=== PATIENT | female | born 1935 | race Hispanic/Latino ===

== ENCOUNTER → 2017-09-30 | Outpatient (CLI) | payer MEDICARE ==
[~2017-09-30] MED LIST: ANAS1TAB7 PO; ASPI-1005 PO; ATOR40TA71 PO; BRIN8DRO OU; GLIM1TAB2 PO; LISI-617 PO; MECL12.585 PO; METO-408 PO; METO25TA6 PO; OLOP2.5D OU; RANI-248 PO; SITA100T12 PO; TRAVZOS OU
== END | disposition home or self-care (01) ==
LOC: RAH 16:22
PROVIDERS: ATTEND Internal Medicine
DX: M41.84 Other forms of scoliosis, thoracic region (principal); I10 Essential (primary) hypertension; E11.9 Type 2 diabetes mellitus without complications; E78.5 Hyperlipidemia, unspecified; Z95.0 Presence of cardiac pacemaker; Z85.3 Personal history of malignant neoplasm of breast
CPT/HCPCS: 71046

== ENCOUNTER → 2017-10-15 | Outpatient (CLI) | payer MEDICARE ==
[2017-10-15 12:15] LABS: CREATININE 0.8 mg/dL (0.5-1.5)
== END | disposition home or self-care (01) ==
LOC: LAB 10:18
PROVIDERS: ATTEND Internal Medicine
DX: E11.9 Type 2 diabetes mellitus without complications (principal)
CPT/HCPCS: 36415; 82565; 84520

== ENCOUNTER → 2017-10-19 | Outpatient (CLI) | payer MEDICARE ==
[~2017-10-19] MED LIST changes: +ISOVUE-370 50ML VIAL IV ONE
== END | disposition home or self-care (01) ==
LOC: RAH 09:57
PROVIDERS: ATTEND Internal Medicine
DX: R07.9 Chest pain, unspecified (principal); Z85.3 Personal history of malignant neoplasm of breast; Z90.49 Acquired absence of other specified parts of digestive tract
CPT/HCPCS: 71260; Q9967

== ENCOUNTER → 2017-10-20 | Outpatient (CLI) | payer MEDICARE ==
[~2017-10-20] MED LIST changes: -ISOVUE-370 50ML VIAL IV ONE
== END | disposition home or self-care (01) ==
LOC: RAH 11:08
PROVIDERS: ATTEND Psychiatry & Neurology Neurology
DX: R51 Headache (principal)
CPT/HCPCS: 70450

== ENCOUNTER → 2017-11-12 | Outpatient (CLI) | payer MEDICARE | END | disposition home or self-care (01) | LOC: SHCH 15:08 | PROVIDERS: ATTEND Internal Medicine Cardiovascular Disease | DX: I73.9 Peripheral vascular disease, unspecified (principal) | CPT/HCPCS: 93925 ==

== ENCOUNTER → 2017-12-03 | Outpatient (CLI) | payer MEDICARE ==
[~2017-12-03] MED LIST changes: +REGADENOSON 0.4 MG/5 ML PF SYG IVP SCH
== END | disposition home or self-care (01) ==
LOC: SHCH 09:14
PROVIDERS: ATTEND Internal Medicine Cardiovascular Disease
DX: I10 Essential (primary) hypertension (principal); I25.10 Atherosclerotic heart disease of native coronary artery without angina pectoris
CPT/HCPCS: 78452; 93017; 96374; A9500 ×2; J2785

== ENCOUNTER → 2018-12-30 | Outpatient (CLI) | payer MEDICARE ==
[~2018-12-30] MED LIST changes: -REGADENOSON 0.4 MG/5 ML PF SYG IVP SCH
== END | disposition home or self-care (01) ==
LOC: RAH 13:30
PROVIDERS: ATTEND Psychiatry & Neurology Neurology
DX: G31.9 Degenerative disease of nervous system, unspecified (principal); R90.82 White matter disease, unspecified; G45.9 Transient cerebral ischemic attack, unspecified
CPT/HCPCS: 70450

== ENCOUNTER → 2019-05-27 | Outpatient (CLI) | payer MEDICARE ==
[~2019-05-27] VITALS: Ht 154.9 cm; Wt 59.9 kg
[~2019-05-27] MED LIST changes: -GLIM1TAB2 PO; +GLIM1TAB3 PO; -RANI-248 PO; +RANI-662 PO; +REGADENOSON 0.4 MG/5 ML PF SYG IVP SCH
== END | disposition home or self-care (01) ==
LOC: SHCH 08:47
PROVIDERS: ATTEND Internal Medicine Cardiovascular Disease
DX: I47.1 Supraventricular tachycardia (principal); I10 Essential (primary) hypertension
CPT/HCPCS: 78452; 93017; 96374; A9500 ×2; J2785

== ENCOUNTER → 2021-02-13 | Outpatient (CLI) | payer MEDICARE ==
[~2021-02-13] MED LIST changes: +GLIM1TAB18 PO; -GLIM1TAB3 PO; -LISI-617 PO; +LISI-809 PO; +MECL-226 PO; -MECL12.585 PO; -OLOP2.5D OU; +OLOP2.5D12 OU; -REGADENOSON 0.4 MG/5 ML PF SYG IVP SCH
== END | disposition home or self-care (01) ==
LOC: RAH 15:32
PROVIDERS: ATTEND Internal Medicine
DX: Z04.3 Encounter for examination and observation following other accident (principal); W19.XXXA Unspecified fall, initial encounter; Y93.89 Activity, other specified; Y92.89 Other specified places as the place of occurrence of the external cause; Y99.8 Other external cause status
CPT/HCPCS: 71100

== ENCOUNTER → 2022-07-21 | Outpatient (CLI) | payer MEDICARE ==
[~2022-07-21] MED LIST changes: -LISI-809 PO; +LISI5TAB21 PO
== END | disposition home or self-care (01) ==
LOC: SHCH 11:08
PROVIDERS: ATTEND Internal Medicine Cardiovascular Disease
DX: I08.0 Rheumatic disorders of both mitral and aortic valves (principal); R07.9 Chest pain, unspecified
CPT/HCPCS: 93306

== ENCOUNTER → 2022-08-26 | Outpatient (CLI) | payer MEDICARE | END | disposition home or self-care (01) | LOC: SHCH 12:56 | PROVIDERS: ATTEND Internal Medicine Cardiovascular Disease | DX: I70.203 Unspecified atherosclerosis of native arteries of extremities, bilateral legs (principal) | CPT/HCPCS: 93925 ==

== ENCOUNTER → 2022-09-02 | Outpatient (CLI) | payer MEDICARE ==
[~2022-09-02] MED LIST changes: +REGADENOSON 0.4 MG/5 ML PF SYG IVP ONE
== END | disposition home or self-care (01) ==
LOC: SHCH 08:12
PROVIDERS: ATTEND Internal Medicine Cardiovascular Disease
DX: I48.91 Unspecified atrial fibrillation (principal); R07.9 Chest pain, unspecified
CPT/HCPCS: 78452; 96374; 93017; J2785; A9500 ×2

== ENCOUNTER → 2023-02-19 | Outpatient (CLI) | payer MEDICARE ==
[~2023-02-19] MED LIST changes: -REGADENOSON 0.4 MG/5 ML PF SYG IVP ONE
== END | disposition home or self-care (01) ==
LOC: RAH 13:23
PROVIDERS: ATTEND Internal Medicine
DX: R63.4 Abnormal weight loss (principal); Z85.3 Personal history of malignant neoplasm of breast; Z95.0 Presence of cardiac pacemaker
CPT/HCPCS: 71250; 74176

== ENCOUNTER → 2023-11-16 | Outpatient (CLI) | payer MEDICARE ==
[2023-11-16] MEDS: REGADENOSON 0.4 MG/5 ML PF SYG IVP ONE (15:12)
== END | disposition home or self-care (01) ==
LOC: SHCH 09:07
PROVIDERS: ATTEND Internal Medicine Cardiovascular Disease
DX: I49.5 Sick sinus syndrome (principal); R07.9 Chest pain, unspecified; Z95.0 Presence of cardiac pacemaker
CPT/HCPCS: 78452; 93017; J2785; A9500 ×2; 96374

== ENCOUNTER 2024-01-04 06:02 | Day surgery (SDC) | payer MEDICARE ==
[2023-12-31 13:47] LABS: BASOPHILS # (AUTO) 0.05 K/uL (0.00-0.20); BASOPHILS % (AUTO) 0.6 % (0.0-5.0); EOSINOPHILS # (AUTO) 0.16 K/uL (0.00-0.70); EOSINOPHILS % (AUTO) 1.8 % (0.0-8.0); HEMATOCRIT 49.7 % (36-48); IMMATURE GRANULOCYTE ABSOLUTE 0.03 K/uL (0-1); LYMPHOCYTES # (AUTO) 2.3 K/uL (1.0-4.8); LYMPHOCYTES % (AUTO) 25.3 % (21.0-51.0); MEAN CORPUSCULAR HEMOGLOBIN 30.6 pg (27.0-33.0); MEAN CORPUSCULAR VOLUME 92.7 fL (79-99); MONOCYTES # (AUTO) 0.6 K/uL (0.1-1.0); MONOCYTES % (AUTO) 6.6 % (3.0-13.0); NEUTROPHILS # (AUTO) 5.9 K/uL (1.8-7.7); NEUTROPHILS % (AUTO) 65.4 % (40.0-77.0); PLATELET COUNT (AUTO) 186 K/uL (130-400); RED BLOOD CELL COUNT(AUTO) 5.36 MIL/uL (4.00-5.50); WHITE BLOOD COUNT (AUTO) 9.1 K/uL (4.8-10.8)
[2023-12-31 14:07] LABS: CREATININE 0.9 mg/dL (0.5-1.0); POTASSIUM 3.9 mmol/L (3.5-5.1)
[2023-12-31 14:25] LABS: INR 1.04 (0.85-1.15)
[2023-12-31 15:01] VITALS: BP 129/67; PULSE 65; RESP 17
[2023-12-31 15:27] LABS: PARTIAL THROMBOPLASTIN TIME 29.3 SEC (26.3-35.5)
[~2024-01-04] VITALS: Ht 149.9 cm; Wt 57.6 kg
[2024-01-04] VITALS (8 sets, daily range): BP systolic 105–123; BP diastolic 47–58; PULSE 60–64; RESP 11–21
[~2024-01-04 06:02] MED LIST changes: +ALPHAGAN OP; +ALPR0.255 PO; +APIX2.5T PO; -ASPI-1005 PO; +ATOR20TA65 PO; -ATOR40TA71 PO; +BACL10TA PO; -BRIN8DRO OU; +CALC1TAB2 PO; +CETI10TA57 PO; +CHOL500045 PO; +COQ10 PO; +ELDERBERRY PO; +EMPA25TA PO; +ERYT1OIN7 OP; +GENTEAL OP; -GLIM1TAB18 PO; +GLIM4TAB36 PO; +KRIL1CAP19 PO; +LATA2.5D14 OP; +LISI30TA4 PO; -LISI5TAB21 PO; -METO-408 PO; +METO100T14 PO; -METO25TA6 PO; +MIRT7.5T11 PO; +MONT-39 PO; +MVI PO; +NETA2.5D OP; +NIFE-39 PO; +NITR0.4T50 SL; -RANI-662 PO; +RETAINE OP; +TOBR5DRO46 OP; +TOBROO OP; -TRAVZOS OU; +VARE0.03 NS; +ZINC PO; +[UNRECOGNIZED DRUG - OTHER] OU
[2024-01-04] MEDS: 0.9%NACL 1000ML 1,000 ML IV ONE (06:41)
[2024-01-04] MEDS ORDERED: LIDOCAINE HCL 1% MDV 50ML VIAL ONE (07:11)
[2024-01-04] MEDS ORDERED: BUPIVACAINE/PF 0.25% 30ML VIAL IJ ONE (07:11)
[2024-01-04] MEDS ORDERED: CEFAZOLIN SODIUM 1 GM VIAL ONE ×2 (07:28→07:33)
[2024-01-04] MEDS ORDERED: MIDAZOLAM HCL 1 MG/ML 2ML VIAL ONE (07:29)
[2024-01-04] MEDS ORDERED: FENTANYL CITRATE PF 50 MCG/1 ML 2ML VIAL ONE (07:29)
[2024-01-04] MEDS ORDERED: MEPERIDINE-PF 25 MG/ML SYG ONE (07:38)
[2024-01-04] MEDS ORDERED: BACITRACIN 1 EACH PACKET TP ONE (08:29)
[2024-01-04] MEDS ORDERED: TRAM50TA4 PO (08:37)
[2024-01-04] MEDS ORDERED: ACETAMINOPHEN WITH CODEINE 1 TAB TAB PO PRN (09:00)
[2024-01-04] MEDS: ACETAMINOPHEN 500 MG TABLET PO PRN (09:20)
[2024-01-04] MEDS ORDERED: AMOX500T2 PO (09:59)
== END 2024-01-04 11:15 | disposition home or self-care (01) ==
LOC: DAH 06:02
PROVIDERS: ATTEND Internal Medicine Cardiovascular Disease
DX: Z45.010 Encounter for checking and testing of cardiac pacemaker pulse generator [battery] (principal); I49.5 Sick sinus syndrome; E10.9 Type 1 diabetes mellitus without complications; I48.91 Unspecified atrial fibrillation; Z79.01 Long term (current) use of anticoagulants; Z79.4 Long term (current) use of insulin; Z79.899 Other long term (current) drug therapy
CPT/HCPCS: 80048; 85025; 85610; 85730; 36415; 93005; 33228; 82948 ×2; C1785; J0690 ×2; J7030; J0665; J2250; J2175; J3490; A4215; A4222; A4221; A4663; A4216; A4606; A4223 ×3; 99156; 99157; J3010

== ENCOUNTER → 2024-06-16 | Outpatient (CLI) | payer MEDICARE ==
[~2024-06-16] MED LIST changes: +AMOX500T2 PO; +TRAM50TA4 PO
--- NOTE | 2024-06-16 10:11 | HMCIMG ---
US VENOUS DOPPLER UNILATERAL REASON: PAIN IN LT FOOT COMPARISON: None Technique: Left venous doppler ultrasound was performed with spectral analysis and color flow imaging technique. FINDINGS: There is a normal appearance of the common femoral, deep femoral, the profunda femoris and popliteal veins. Proximal calf veins appear normal as well. There is normal response to compression and augmentation. There is no evidence of deep venous thrombosis. IMPRESSION: Normal left lower extremity venous Doppler ultrasound.
== END | disposition home or self-care (01) ==
LOC: RAH 09:15
PROVIDERS: ATTEND Internal Medicine
DX: M79.672 Pain in left foot (principal); L08.9 Local infection of the skin and subcutaneous tissue, unspecified; R60.0 Localized edema
CPT/HCPCS: 93971

== ENCOUNTER 2024-08-23 12:20 | Emergency (ER) | payer MEDICARE ==
[~2024-08-23] VITALS: Ht 152.4 cm; Wt 56.7 kg
--- NOTE | 2024-08-23 14:24 | ERN ---
General Chief Complaint: Wrist Pain/Injury Stated Complaint: FRACTURED LEFT WRIST Time Seen by MD: 12:53 Time Seen by Midlevel: 12:53 Source: patient History of Present Illness Initial Comments 89-year-old female who presents to the emergency department due to a wrist fracture. Patient states she was seen by Dr. Fisher who ordered outpatient x- rays due to a fall two days ago. Patient received x-rays at a [facility] and was recommended to go to the ER due to a possible fracture. Patient denies any LOC, head injuries, further injuries, numbness or tingling to the hand or further associated symptoms. PMHx dementia, DM, blind Allergies: Coded Allergies: No Known Drug Allergies (Unverified Allergy, Unknown, 10/03/14) Home Meds Active Scripts Amoxicillin (Amoxicillin) 500 Mg Tablet, 500 MG PO ONCE, #4 TAB 0 Refills Take 4 tabs 1 hour before dental procedure. Prov:DOMENICA ALBA MD 01/04/24 Tramadol Hcl (Tramadol HCl) 50 Mg Tablet, 50 MG PO Q6HPRN PRN for PAIN, #15 TAB 0 Refills Prov:DOMENICA ALBA MD 01/04/24 Reported Medications [Retaine] No Conflict Check, 1 DROP OP AD PRN for DRYNESS 12/31/23 [Genteal] No Conflict Check, 1 DROP OP AD PRN for DRYNESS 12/31/23 Latanoprost (Latanoprost) 0.005 % Drops, 1 DROP OP HS, DROP 12/31/23 Netarsudil Mesylate (Rhopressa) 0.02 % Drops, 1 DROP OP BID, DROP 12/31/23 Varenicline Tartrate (Tyrvaya) 0.03 Mg/[place].metr, 1 SPRAY NS BID PRN for DRYNESS 12/31/23 [Alphagan] No Conflict Check, 1 DROP OP TID 12/31/23 Tobramycin/Dexamethasone (Tobradex St Eye Drops) 0.3 %-0.05 % Drops.susp, 1 DROP OP TID, DROP 12/31/23 Tobramycin/Dexamethasone (Tobradex Eye Ointment) 0.3 %-0.1 % Oint...g., 1 APPL OP BID 12/31/23 Erythromycin Base (Erythromycin) 5 Mg/Gram (0.5 %) Oint...g., 1 APPL OP BID PRN for INFECTION 12/31/23 Krill/Om-3/Dha/Epa/Phospho/Ast (Krill Oil 500 mg Softgel) 500-150-45 Capsule, 1 EACH PO AM, CAP 12/31/23 Cholecalciferol (Vitamin D3) (Vitamin D3) 125 Mcg (5000 Unit) Tablet, 125 MCG PO AM, TAB 12/31/23 [Coq10] No Conflict Check, 200 MG PO AM 12/31/23 Cetirizine HCl (Cetirizine HCl) 10 Mg Tablet, 10 MG PO AM, TAB 12/31/23 Metoprolol Tartrate (Metoprolol Tartrate) 100 Mg Tablet, 150 MG PO BID, TAB 12/31/23 Alprazolam (Alprazolam) 0.25 Mg Tablet, 0.25 MG PO PM, TAB 12/31/23 Glimepiride (Glimepiride) 4 Mg Tablet, 4 MG PO AM, TAB 12/31/23 Lisinopril (Lisinopril) 30 Mg Tablet, 30 MG PO AM, TAB 12/31/23 Montelukast Sodium (Montelukast Sodium) 10 Mg Tablet, 10 MG PO HS, TAB 12/31/23 Nitroglycerin (Nitroglycerin) 0.4 Mg Tab.subl, 0.4 MG SL AD PRN for CHEST PAIN, TAB.SL 12/31/23 Mirtazapine (Mirtazapine) 7.5 Mg Tablet, 0.5 TAB PO PM, TAB 12/31/23 Baclofen (Baclofen) 10 Mg Tablet, 10 MG PO TID PRN for PAIN, TAB 12/31/23 Nifedipine (Nifedipine ER) 60 Mg Tab.er.24, 30 MG PO AM 12/31/23 Atorvastatin Calcium (Atorvastatin Calcium) 20 Mg Tablet, 20 MG PO HS, TAB 12/31/23 Empagliflozin (Jardiance) 25 Mg Tablet, 25 MG PO AM, TAB 12/31/23 Apixaban (Eliquis) 2.5 Mg Tablet, 2.5 MG PO BID, TAB 12/31/23 [[place] 3 Refresh] No Conflict Check, 1 DROP OU AD PRN for DRYNESS 12/31/23 [Zinc] No Conflict Check, 1 GUM PO AM 12/31/23 [Elderberry] No Conflict Check, 2 GUM PO AM 12/31/23 Calcium Carbonate/Vitamin D3 (Caltrate 600 + D Tablet) 600 Mg Calcium-20 Mcg (800 Unit) Tablet, 1 EACH PO MWF, TAB 12/31/23 [Mvi] No Conflict Check, 1 TAB PO AM 12/31/23 Olopatadine HCl (Pataday) 2.5 Ml Drops, 1 DROP OU DAILY, DROP 12/28/15 Meclizine HCl (Meclizine HCl) 12.5 Mg Tablet, 12.5 MG PO BID PRN for DIZZINESS, TAB 12/28/15 Anastrozole (Anastrozole) 1 Mg Tablet, 1 MG PO AM, TAB 10/03/14 Sitagliptin Phosphate (Januvia) 100 Mg Tablet, 100 MG PO PM, TAB 10/03/14 Past Medical History Past Medical History: A-Fib, Dementia, Diabetes-Type II Medical History Other: BLIND Past Surgical History: Pacer/AICD, Other Surgical History Other: LEFT MASTECTOMY ROS Dictation Constitutional: Negative for fever,chills, and weight loss Eyes: Negative for injury, pain,redness, and discharge ENT: Negative for injury,pain or swelling Cardiovascular: Negative for chest pain, palpitations, and edema Respiratory: Negative for shortness of breath, cough, and wheezing, Abdomen/GI: Negative for abdominal pain, nausea, vomiting, diarrhea, and constipation Back: Negative for injury and pain : Negative for painful urination, bleeding or discharge MS/Extremity: Positive for left wrist pain Negative for injury and deformity Skin: Negative for rash, and discoloration Neuro: Negative for headache, weakness, numbness, tingling, and seizure Psych: Negative for suicide ideation, homicidal ideation, and hallucinations Physical Exam Physical Exam Dictation General: awake, alert, no acute distress Head/Face: Normocephalic, atraumatic Neck: Normal range of motion, supple Cardiovascular: RRR, normal S1/S2, normal peripheral perfusion Respiratory: no respiratory distress Skin: Warm, dry, normal turgor, no rash MS/Extremity: Pulses equal, no cyanosis, neurovascular intact, FROM, no obvious deformities, or ecchymosis noted, left wrist tenderness on palpation limited range of motion restricted by pain Neuro: COAx4, GCS 15, no neurological deficits, normal gait Psych: Normal behavior, mood, and affect normal Results EKG/XRAY/US/CT/MRI X-RAY Comment REASON: FALL, PAIN IN LEFT ARM ORDERING PHYSICIAN: ROMERO FISHER MD PROCEDURE: WRST 3V LT - WRIST COMP 3+VWS LT WRIST COMP 3+VWS LT REASON: FALL, PAIN IN LEFT ARM TECHNIQUE: 4 views were obtained. FINDINGS: There is a nondisplaced ulnar styloid evulsion. There is a nondisplaced fracture of the distal radial metaphysis. Carpal bones appear intact. IMPRESSION: 1. Nondisplaced fractures of the distal radius and ulna. DICTATED BY: MARGAUX LEE MD DATE: 08/23/24 1252 MDM MDM: Differential diagnosis: Fracture, sprain, strain, dislocation Rationale: 89-year-old female who presents to the emergency department due to a wrist fracture. Patient states she was seen by Dr. Fisher who ordered outpatient x-rays due to a fall two days ago. Patient received x-rays at a [facility] and was recommended to go to the ER due to a possible fracture. Patient denies any LOC, head injuries, further injuries, numbness or tingling to the hand or further associated symptoms. PMHx dementia, DM, blindness Per physical examination patient is tender limited range of motion of the left wrist, neurovascularly intact. X-rays that were performed today were reviewed with nondisplaced distal radial and ulnar fracture noted. Patient was placed on a sugar-tong splint and referred to follow up with . Family member mentioned follow up appointment is in two days. Advised to follow up with PCP. Return to the emergency department if any worsening symptoms. Patient and family member verbalized understanding. Patient stable for discharge. There are no social concerns with this patient. I independently interpreted the test that were performed, results were reviewed by me and considered findings on radiology if ordered. Medical management and examination interpretation discussions were had by me with other qualified healthcare professionals as indicated for the patient's care. ED Course Orders Procedure Category Date Status Time Reverse Sugar Tong PATRICIA 08/23/24 Complete Splint 13:40 Morphine 2mg Syg PHA 08/23/24 Complete (Morphine 2mg Syg) 14:30 Current Medications Medications (Trade) Dose Ordered Sig/Genesis Route PRN Reason Start Time Stop Time Status Last Admin Dose Admin Morphine Sulfate (morPHINE 2MG SYG) 2 mg ONCE ONCE IM 08/23/24 14:30 08/23/24 14:31 DC 08/23/24 14:28 Vital Signs Date Time Temp Pulse Resp B/P (MAP) Pulse Ox O2 Delivery O2 Flow Rate FiO2 08/23/24 14:35 99.0 76 11 141/87 98 Room Air* 0 21 08/23/24 13:13 99.0 76 20 154/88 98 Room Air 0 DX & DISP Disposition: Discharge Departure Impression: Primary Impression: Fracture of distal radius and ulna Condition: Stable Additional Instructions: Discharge home. Rest. Follow up with primary care DrMarah in 24 hours. Return to the ER for any acute changes or worsening symptoms. If any medications were prescribed take as directed. Okay to continue home medications unless otherwise discussed during your visit in the emergency room today. Patient was also advised to follow-up with primary care physician in 1 to 2 days for continued monitoring. Referrals: ROMERO FISHER MD (PCP) I performed the substantive portion of the visit. I have reviewed and personally made and approve the management plan that is documented in the notes by myself or the KYLE. I acknowledge full responsibility for the patient's management plan. MODESTA TORRES Aug 23, 2024 14:24 LEONELA CUNNINGHAM MD Aug 24, 2024 12:07
[2024-08-23] MEDS: morPHINE 2 MG SYG IM ONE (14:28)
[2024-08-23 14:35] VITALS: BP 141/87; PULSE 76; RESP 11; TEMP 98.9; O2SAT 98
== END 2024-08-23 14:56 | disposition home or self-care (01) ==
LOC: EDH 12:20
DX: S52.502A Unspecified fracture of the lower end of left radius, initial encounter for closed fracture (principal); S52.602A Unspecified fracture of lower end of left ulna, initial encounter for closed fracture; F03.90 Unspecified dementia, unspecified severity, without behavioral disturbance, psychotic disturbance, mood disturbance, and anxiety; E11.9 Type 2 diabetes mellitus without complications; I48.91 Unspecified atrial fibrillation; Z79.01 Long term (current) use of anticoagulants; Z79.899 Other long term (current) drug therapy; Z95.810 Presence of automatic (implantable) cardiac defibrillator; W18.39XA Other fall on same level, initial encounter; Y93.89 Activity, other specified; Y92.89 Other specified places as the place of occurrence of the external cause; Y99.8 Other external cause status
CPT/HCPCS: 99284; 73090; 73130; 73110; 29125; 96372; J2270

== ENCOUNTER → 2024-08-23 | Outpatient (CLI) | payer MEDICARE ==
--- NOTE | 2024-08-23 10:59 | HMCIMG ---
HAND 3+VWS LT REASON: FALL, PAIN IN LEFT ARM TECHNIQUE: 3 views were obtained. FINDINGS: There is an evulsion fracture of the ulnar styloid, nondisplaced. There is a nondisplaced fracture of the distal radial metaphysis as well. Carpal bones appear intact as do the metacarpals. IMPRESSION: 1. Nondisplaced fractures of the distal radius and ulna.
--- NOTE | 2024-08-23 12:57 | HMCIMG ---
WRIST COMP 3+VWS LT REASON: FALL, PAIN IN LEFT ARM TECHNIQUE: 4 views were obtained. FINDINGS: There is a nondisplaced ulnar styloid evulsion. There is a nondisplaced fracture of the distal radial metaphysis. Carpal bones appear intact. IMPRESSION: 1. Nondisplaced fractures of the distal radius and ulna.
--- NOTE | 2024-08-23 12:58 | HMCIMG ---
FOREARM 2VWS LT REASON: FALL, PAIN IN LEFT ARM TECHNIQUE: 2 views were obtained. FINDINGS: There is no longer styloid evulsion. There is nondisplaced fracture distal radial metaphysis. Radius and ulna appear otherwise intact. IMPRESSION: 1. Nondisplaced fractures of the distal left radius and ulna.
== END | disposition home or self-care (01) ==
LOC: RAH 10:05
PROVIDERS: ATTEND Internal Medicine
DX: S52.592A Other fractures of lower end of left radius, initial encounter for closed fracture (principal); S52.692A Other fracture of lower end of left ulna, initial encounter for closed fracture; W19.XXXA Unspecified fall, initial encounter; Y93.89 Activity, other specified; Y92.89 Other specified places as the place of occurrence of the external cause; Y99.8 Other external cause status
CPT/HCPCS: 73090; 73110; 73130